=== PATIENT | female | born 1955 | race Caucasian/White ===

== ENCOUNTER 2017-03-24 13:39 | Emergency (ER) | payer OTHER ==
[~2017-03-24] VITALS: Ht 162.6 cm; Wt 61.2 kg
[2017-03-24 13:43] VITALS: BP 110/62
[2017-03-24] MEDS ORDERED: LEVOTHYROXINE50 MCG PO (14:37)
[2017-03-24] MEDS ORDERED: OMEGA 3-6-9 11200 MG PO (14:38)
[2017-03-24] MEDS ORDERED: VITAMIN D1000 UNIT PO (14:39)
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
[2017-03-24] MEDS ORDERED: CYCLOBENZAPRINE10 M1 PO (15:21)
== END 2017-03-24 15:31 ==
LOC: ERH 13:39
DX: S16.1XXA Strain of muscle, fascia and tendon at neck level, initial encounter (principal); V49.40XA Driver injured in collision with unspecified motor vehicles in traffic accident, initial encounter; Y92.9 Unspecified place or not applicable
CPT/HCPCS: 72050